=== PATIENT | female | born 1990 | race Caucasian/White ===

== ENCOUNTER 2018-04-07 07:42 | Emergency (ER) | payer SELFPAY ==
[~2018-04-07] VITALS: Ht 152.4 cm; Wt 90.7 kg
[~2018-04-07 07:42] MED LIST: AMOXICILLIN500 MG PO; AMOXIL500 MG PO; ATARAX25 MG PO; BACTRIM DS 8001 TA1 PO; HYDROCODONE BIT1 T11 PO; KEFLEX500 MG PO; KENALOG 0.025%15 G1 PO; MOTRIN800 MG PO; NKHM; NO DAILY MEDS; PERCOCET 325 MG1 TAB; PRENATAL1 TA1 PO; ULTRAM50 MG PO
[2018-04-07] MEDS ORDERED: DAYTIME COLD-F1 EAC1 PO (07:50)
[2018-04-07] MEDS ORDERED: AMOXICILLIN500 M2 PO (09:46)
[2018-04-07] MEDS ORDERED: DIFLUCAN150 MG PO (09:46)
[2018-04-19] MEDS ORDERED: ZITHROMAX250 MG PO (17:26)
[2018-04-21] MEDS ORDERED: AUGMENTIN 875875 MG PO (21:41)
== END 2018-04-07 09:58 | disposition home or self-care (01) ==
LOC: ED 07:42
DX: J02.0 Streptococcal pharyngitis (principal); H66.92 Otitis media, unspecified, left ear

== ENCOUNTER 2018-05-16 19:55 | Emergency (ER) | payer MEDICAID ==
[~2018-05-16] VITALS: Ht 152.4 cm; Wt 90.7 kg
[~2018-05-16 19:55] MED LIST changes: +AMOXICILLIN500 M2 PO; +AUGMENTIN 875875 MG PO; +DAYTIME COLD-F1 EAC1 PO; +DIFLUCAN150 MG PO; +ZITHROMAX250 MG PO
[2018-05-16 20:39] LABS: ALBUMIN 3.9 gm/dl (3.1-4.5); ALKALINE PHOSPHATASE 124 U/L (45-117); BUN 13 mg/dl (7-24); CHLORIDE 108 mmol/L (98-107); POTASSIUM 4.9 mmol/L (3.5-5.1); SGOT/AST 21 IU/L (3-35); SGPT/ALT 28 U/L (12-78); SODIUM 139 mmol/L (136-145); TOTAL PROTEIN 8.6 gm/dL (6.4-8.2)
[2018-05-16 20:42] LABS: BETA-HCG, QUANT < 1.0 mIU/mL (1-3)
[2018-05-16 20:58] LABS: BILIRUBIN NEGATIVE (NEGATIVE); BLOOD 3+ (NEGATIVE); CLARITY CLOUDY (CLEAR); COLOR YELLOW (YELLOW); GLUCOSE NEGATIVE (NEGATIVE); KETONE NEGATIVE (NEGATIVE); LEUKO ESTERASE TRACE (NEGATIVE); NITRITE NEGATIVE (NEGATIVE); UROBILINOGEN 0.2 E.U./dl (0.2-1.0)
[2018-05-16 21:14] LABS: BASO # 0.1 10*3/uL (0.0-0.1); BASO % 0.3 % (0.0-1.0); EOS # 1.1 10*3/uL (0.0-0.4); EOS % 6.4 % (1.0-4.0); HEMATOCRIT 38.6 % (37.0-47.0); HEMOGLOBIN 12.4 g/dl (12.0-16.0); LYMPH % 30.5 % (27.0-41.0); MEAN CORPUSCULAR HGB 29.2 pg (27.0-31.0); MEAN CORPUSCULAR HGB CONC 32.1 g/dl (33.0-37.0); MEAN PLATELET VOLUME 10.1 fl (9.6-12.3); MONO # 0.9 10*3/uL (0.1-1.0); MONO % 5.3 % (3.0-9.0); NEUT # 9.4 10*3/uL (2.3-7.9); NEUT % 57.2 % (47.0-73.0); PLATELET COUNT AUTOMATED 408 10*3/uL (130-400); RED BLOOD COUNT 4.24 10*6/uL (4.10-5.10); RED CELL DISTRI WIDTH 16.2 % (0-14.5); WHITE BLOOD COUNT 16.4 10*3/uL (4.8-10.8)
[2018-05-16 21:24] LABS: BACTERIA TRACE; EPITHELIAL CELLS 0-2; RBC 31-40 rbc/hpf (0-2)
== END 2018-05-16 21:34 | disposition home or self-care (01) ==
LOC: ED 19:55
PROVIDERS: Student in an Organized Health Care Education/Training Program
DX: R51 Headache (principal); R42 Dizziness and giddiness; R11.0 Nausea; H53.8 Other visual disturbances

== ENCOUNTER 2018-09-08 | Emergency (ER) | payer OTHER ==
[2018-09-08] MEDS ORDERED: MOTRIN 600 MG E4 TAB PO (17:41)
[2018-09-08] MEDS ORDERED: TYLENOL325 M1 PO (17:41)
[2018-09-08] MEDS ORDERED: BACITRACIN ZIN0.9 GM T (17:41)
== END 2018-09-08 17:35 | disposition home or self-care (01) ==
DX: S01.01XA Laceration without foreign body of scalp, initial encounter (principal); Z79.2 Long term (current) use of antibiotics; W22.8XXA Striking against or struck by other objects, initial encounter; Y93.89 Activity, other specified; Y92.89 Other specified places as the place of occurrence of the external cause; Y99.8 Other external cause status

== ENCOUNTER 2018-09-13 12:44 | Emergency (ER) | payer OTHER ==
[~2018-09-13] VITALS: Ht 152.4 cm; Wt 86.2 kg
[~2018-09-13 12:44] MED LIST changes: +BACITRACIN ZIN0.9 GM T; +MOTRIN 600 MG E4 TAB PO; +TYLENOL325 M1 PO
== END 2018-09-13 13:25 | disposition home or self-care (01) ==
LOC: ED 12:44
DX: S01.01XD Laceration without foreign body of scalp, subsequent encounter (principal); Z79.899 Other long term (current) drug therapy; W22.8XXD Striking against or struck by other objects, subsequent encounter

== ENCOUNTER 2020-08-05 10:54 | Emergency (ER) | payer OTHER ==
[~2020-08-05] VITALS: Wt 77.1 kg
[2020-08-05] MEDS ORDERED: IBUPROFEN600 MG PO (11:30)
[2020-08-05] MEDS ORDERED: Tobrex Ophth S2.5 ML OPH (11:30)
== END 2020-08-05 11:46 | disposition home or self-care (01) ==
LOC: ED 10:54
DX: T15.92XA Foreign body on external eye, part unspecified, left eye, initial encounter (principal); Z79.899 Other long term (current) drug therapy; X58.XXXA Exposure to other specified factors, initial encounter; Y93.89 Activity, other specified; Y92.89 Other specified places as the place of occurrence of the external cause; Y99.8 Other external cause status